=== PATIENT | female | born 1990 | race Caucasian/White ===

== ENCOUNTER 2020-03-02 14:32 | Outpatient (CLI) | payer BC, SELFPAY ==
[2020-03-05 12:20] LABS: SARS-CoV-2 RNA PCR Positive
== END 2020-03-02 14:33 | disposition home or self-care (01) ==
LOC: CHSLAB 14:35
PROVIDERS: PCP Internal Medicine; Visit Provider Internal Medicine
DX: U07.1 COVID-19 (principal)
CPT/HCPCS: 87635; C9803; U0003

== ENCOUNTER 2021-11-06 11:29 | Outpatient (CLI) | payer BC, SELFPAY ==
[2021-11-07] MEDS: RHO(D) IMMUNE GLOBULIN 300 MCG/2 ML SYRINGE IM (11:41)
== END 2021-11-06 11:30 | disposition home or self-care (01) ==
LOC: ANHLAB 11:31
PROVIDERS: PCP Internal Medicine; Visit Provider Obstetrics & Gynecology
DX: O36.0190 Maternal care for anti-D [Rh] antibodies, unspecified trimester, not applicable or unspecified (principal); Z3A.00 Weeks of gestation of pregnancy not specified
CPT/HCPCS: 36415; 85461; 90384; 96372; J2790

== ENCOUNTER 2021-12-13 11:44 | Outpatient (CLI) | payer BC, SELFPAY ==
[2021-12-13] VITALS (8 sets, daily range): BP systolic 129–143; BP diastolic 75–91; PULSE 84–98; RESP 18; TEMP 36.3; BMI 41.2
[2021-12-13 12:44] LABS: Creatinine Urine 209.9 mg/dL
[2021-12-13 12:46] LABS: Alanine Aminotransferase 12 U/L (6-35); Albumin Level 3.5 g/dL (3.5-5.1); Alkaline Phosphatase 81 U/L (38-126); Anion Gap 7 mmol/L (8-16); Aspartate Amino Transferase 17 U/L (14-36); Bilirubin,Total < 0.1 mg/dL (0.2-1.3); Blood Urea Nitrogen 6 mg/dL (7-17); Calcium 8.9 mg/dL (8.4-10.2); Carbon Dioxide 21 mmol/L (22-30); Chloride 107 mmol/L (98-107); Estimated CRCL calculation 203 ml/min; Estimated Glomerular Filt Rate > 60; Glucose 104 mg/dL (65-110); Potassium 3.8 mmol/L (3.4-5.0); Sodium 135 mmol/L (137-145); Uric Acid 5.2 mg/dL (2.5-7.5)
[2021-12-13 12:50] LABS: Basophils Percent Auto 0.3 % (0.2-1.2); Eosinophils Absolute Auto 0.1 K/mm3 (0-0.3); Eosinophils Percent Auto 0.8 % (0-4.4); Hematocrit 37.9 % (37.0-47.0); Hemoglobin 13.1 g/dL (12.0-15.0); Immature Granulocyte Absolute 0.08 K/mm3 (0.00-0.031); Immature Granulocyte Percent A 0.8 % (0-0.5); Lymphocytes Absolute Auto 2.54 K/mm3 (0.9-3.2); Lymphocytes Percent Auto 25.2 % (18.3-44.2); Mean Corpuscular HGB Conc 34.6 g/dl (32-36); Mean Corpuscular Hemoglobin 30.2 pg (26-34); Mean Corpuscular Volume 87.3 fl (80-100); Mean Platelet Volume 9.2 fl (7.4-10.4); Monocytes Absolute Auto 0.6 K/mm3 (0.1-0.6); Monocytes Percent Auto 6.3 % (2.6-8.5); Neutrophils Absolute Auto 6.7 K/mm3 (1.3-6.7); Neutrophils Percent Auto 66.6 % (45.5-73.1); Platelet Count Result 294 k/mm3 (150-375); Red Blood Count 4.34 M/mm3 (4.2-5.4); White Blood Count 10.1 K/mm3 (4.5-10.0)
[2021-12-13 13:11] LABS: Add Urine Microscopic? YES; Appearance Urine Slightly Cloudy (Clear); Bilirubin Urine Negative (Negative); Blood Urine Trace-Intact (Negative); Color Urine Yellow (Yellow); Glucose Urine UA Negative (Negative); Ketones Urine Negative (Negative); Leukocyte Esterase Ur 1+ LEU/UL (Negative); Nitrate Urine Negative (Negative); Protein Urine Trace mg/dL (Negative); Specific Grav Ur 1.025 (1.001-1.035); Urobilinogen Urine 0.2 mg/dL (<2.0)
[2021-12-13 13:17] LABS: Bacteria Urine 2+ /hpf; Mucus Urine Few /lpf; Squamous Epithelial Cell Urine Moderate /hpf (Few)
[2021-12-13 13:28] LABS: Total Protein Urine Random < 5 mg/dL; Ur Ttl Prot Creatinine Ratio < 0.02 mg/mg (0-0.20)
--- NOTE | 2021-12-13 13:47 | PC.NURSE ---
Dr. Lesley Shin informed of BP's, lab results, and reactive NST. Order for discharge received.
--- NOTE | 2021-12-27 11:36 | PM.IMHP ---
H&P: HPI History of Present Illness Date/Time: 12/27/21 11:36 Chief Complaint: Elevated blood pressure at term with previous section Narrative: This is a 31-year-old 2 para 1 with a previous who presents at 38 weeks gestation for repeat section. Her blood pressures have been gradually worsening. She has an early ultrasound confirming dates. [facility] Past Medical History Medical History (Updated 05/24/19 @ 10:53 by Sho Patton CRNA) Obesity (BMI 35.0-39.9 without comorbidity) Family History Family History Grandparent Diabetes mellitus Mother Diverticulitis Father Hypertension Sibling Asthma Social History Social History Smoking status: Never smoker Substance use: never Spiritual care concerns: No Meds Home Medications and Allergies Home Medications Medication Instructions Recorded Confirmed Type ergocalciferol (vitamin D2) 1,250 50,000 unit PO WEEKLY 05/11/19 12/13/21 History mcg (50,000 unit) capsule (Vitamin D2) vit no.95-ferrous 1 tablet PO DAILY 12/13/21 12/13/21 History fumarate 28 mg-folic acid 800 mcg tablet () Allergies Allergy/AdvReac Type Severity Reaction Status Date / Time No Known Allergies Allergy Verified 05/11/19 13:27 Assessment and Plan Assessment and plan (1) Obesity (BMI 35.0-39.9 without comorbidity): Code(s): E66.9 - Obesity, unspecified Status: Acute (2) Gestational hypertension: Code(s): O13.9 - Gestational [-induced] hypertension without significant proteinuria, unspecified trimester Status: Acute (3) Previous section: Code(s): Z98.891 - History of uterine scar from previous surgery Status: Acute Plan Repeat low-transverse section
== END 2021-12-13 13:52 | disposition home or self-care (01) ==
LOC: ANHOBOP 11:51 → ANHOBPP 11:52
PROVIDERS: PCP Internal Medicine; Visit Provider Obstetrics & Gynecology
DX: O13.9 Gestational [pregnancy-induced] hypertension without significant proteinuria, unspecified trimester (principal); Z3A.00 Weeks of gestation of pregnancy not specified
CPT/HCPCS: 36415; 59025; 80053; 81001; 82570; 84156; 84550; 85025; 87086; 87088; 99199

== ENCOUNTER 2021-12-28 10:23 | Outpatient (CLI) | payer BC, SELFPAY ==
[2021-12-28 10:39] LABS: Mean Corpuscular HGB Conc 32.5 g/dl (32-36); Mean Corpuscular Hemoglobin 29.5 pg (26-34); Mean Corpuscular Volume 90.9 fl (80-100); Mean Platelet Volume 9.1 fl (7.4-10.4); Platelet Count Result 273 k/mm3 (150-375); Red Cell Distribution Width 14.6 % (11.5-14.5); White Blood Count 9.6 K/mm3 (4.5-10.0)
[2021-12-30 05:56] LABS: Rapid Plasma Reagin Non-Reactive (NonReactive)
== END 2021-12-28 10:24 | disposition home or self-care (01) ==
PROVIDERS: PCP Internal Medicine; Visit Provider Obstetrics & Gynecology
DX: Z34.93 Encounter for supervision of normal pregnancy, unspecified, third trimester (principal); Z3A.00 Weeks of gestation of pregnancy not specified
CPT/HCPCS: 36415; 85027; 86592; 86850; 86880; 86900; 86901; 86902

== ENCOUNTER 2021-12-30 05:27 | Inpatient (IN) | payer BC, SELFPAY ==
--- NOTE | 2021-12-27 11:38 | HP_ITS ---
This report was moved to the correct visit on 01/02/2022. Original report was signed by Ralph Pope MD on 12/27/2021 1138. H&P: HPI History of Present Illness Date/Time: 12/27/21 11:36 Chief Complaint: Elevated blood pressure at term with previous section Narrative: This is a 31-year-old 2 para 1 with a previous who presents at 38 weeks gestation for repeat section. Her blood pressures have been gradually worsening. She has an early ultrasound confirming dates. [facility] Past Medical History Medical History (Updated 05/24/19 @ 10:53 by Sho Patton CRNA) Obesity (BMI 35.0-39.9 without comorbidity) Family History Family History Grandparent Diabetes mellitus Mother Diverticulitis Father Hypertension Sibling Asthma Social History Social History Smoking status: Never smoker Substance use: never Spiritual care concerns: No Meds Home Medications and Allergies Home Medications Medication Instructions Recorded Confirmed Type ergocalciferol (vitamin D2) 1,250 50,000 unit PO WEEKLY 05/11/19 12/13/21 History mcg (50,000 unit) capsule (Vitamin D2) vit no.95-ferrous 1 tablet PO DAILY 12/13/21 12/13/21 History fumarate 28 mg-folic acid 800 mcg tablet () Allergies Allergy/AdvReac Type Severity Reaction Status Date / Time No Known Allergies Allergy Verified 05/11/19 13:27 Assessment and Plan Assessment and plan (1) Obesity (BMI 35.0-39.9 without comorbidity): Code(s): E66.9 - Obesity, unspecified Status: Acute (2) Gestational hypertension: Code(s): O13.9 - Gestational [-induced] hypertension without significant proteinuria, unspecified trimester Status: Acute (3) Previous section: Code(s): Z98.891 - History of uterine scar from previous surgery Status: Acute Plan Repeat low-transverse section This dictation may have been done utilizing a voice recognition system. Attempts have been made to correct errors. However, there may be uncorrected grammatical, spelling, and recognition errors present. Report Initialized date/time: Ralph Pope MD 12/27/21 / 8 Electronically signed by: Ralph Pope MD 12/27/21 1138 [facility]
--- NOTE | 2021-12-27 12:17 | PC.NURSE ---
Verified with OR schedule and patient--C/S 12/30/21 at 0900 Patient given requisition for pre-op lab draw on 12/28/21
[2021-12-30] VITALS (67 sets, daily range): BP systolic 78–179; BP diastolic 47–144; PULSE 67–134; RESP 12–18; TEMP 36.2–37.3; O2SAT 98–100; BMI 41.6
[2021-12-30] MEDS: LACTATED RINGERS 1,000 ML 125 ML IV CONT (05:48)
--- NOTE | 2021-12-30 05:51 | LDADM ---
This patient, Gabriella Martin, was admitted to Labor/Delivery/Recovery 120 on 12/30/21 at 05:27. Plans for labor, pain management and were discussed with patient. Patient/family oriented to hospital policies and general routines including ID bracelet, bed and alarms, visiting hours, pain management, procedures, bathroom and other care routines, personal items, smoking policy, room service/diet and guest tray routines, infant security routines, and visiting hours. Patient/Family are encouraged to report perceived risks to care and to ask questions if they do not understand what they are told or what they should do. See OBIX for further documentation.
--- NOTE | 2021-12-30 06:33 | P.PNAN_ITS ---
Anes - Initial Pre Proc Eval Procedure: Operation Date: 12/30/21 09:00 Proposed Procedures p Repeat Section - Ralph Shin MD Date/Time: 12/30/21 06:33 Surgeon: Ralph Shin MD Pre Op Diagnosis: Repeat Patient Data Age: 31 Gender: F Height: 1.63 m Weight: 110 kg Last Vital Signs Temp 36.2 C L 12/30/21 06:25 Pulse 91 12/30/21 06:11 BP 116/86 12/30/21 06:11 O2 Del Method Room Air 12/30/21 05:51 Allergies Allergy/AdvReac Type Severity Reaction Status Date / Time No Known Allergies Allergy Verified 12/27/21 12:04 Home Medications Medication Instructions Recorded Confirmed Type ergocalciferol (vitamin D2) 1,250 50,000 unit PO WEEKLY 05/11/19 12/13/21 History mcg (50,000 unit) capsule (Vitamin D2) vit no.95-ferrous 1 tablet PO DAILY 12/13/21 12/13/21 History fumarate 28 mg-folic acid 800 mcg tablet () Patient hx anesthesia problems: none Family hx anesthesia problems: none Results Review: All pre-operative results and documents have been reviewed as part of the pre- operative evaluation. [facility] Past Medical History Medical History (Updated 05/24/19 @ 10:53 by Sho Patton CRNA) Obesity (BMI 35.0-39.9 without comorbidity) Family History Family History Grandparent Diabetes mellitus Mother Diverticulitis Father Hypertension Sibling Asthma Social History Social History Smoking status: Never smoker Second hand tobacco smoke exposure: No Substance use: never Spiritual care concerns: No Anes - Eval Final PreProcedure Day of Procedure 12/30/21 06:33 Patient weight: morbidly obese Heart: regular rate and rhythm Lungs: clear to auscultation and normal air movement Airway: Mallampati scale class II Neurological: alert and oriented Last oral intake: >/= 8 hours ASA classification: III Emergent: no Anesthetic plan: proceed Anesthesia type and monitoring: regional spinal and standard monitoring Results Review: All pre-operative results and documents have been reviewed as part of the pre-operative evaluation. Informed Consent: The patient's anesthetic plan and its attendant risks and benefits were discussed with the patient/family/POA. Questions were solicited and answers provided to the satisfaction of the patient/family/POA.
--- NOTE | 2021-12-30 06:35 | WPDHPUPDATE1 ---
History and Physical Update Update Date/Time: 12/30/21 06:35 History and Physical has been reviewed, including an updated exam of the patient. There are NO changes in the patient's condition. Risks, benefits, and alternatives have been discussed and questions answered. Patient agrees to proceed with procedure.
[2021-12-30] MEDS: LACTATED RINGERS 250 ML 999 ML IVPB (06:59)
[2021-12-30] MEDS: ceFAZolin 2 GM/D5W 50 ML 2 GM/50 ML BAG IVPB (07:28)
--- NOTE | 2021-12-30 08:46 | W.PM.PROC2 ---
Procedure Note - Detailed Date of Procedure 12/30/21 Pre-op Diagnosis Repeat Post-op Diagnosis Same Procedure Performed Repeat low-transverse section Surgeon Ralph Shin MD Anesthesia Spinal Indications This is a 31-year-old 2 para 1 at 38 weeks gestation mild gestational hypertension and previous section Findings Female infant 7lb 1oz Apgars of 8 and 9 at 1 and 5minutes respectively. Multiple adhesions were seen which necessitated slow entry. Description of Procedure Patient was prepped draped in the normal sterile fashion placed in the supine position. Under excellent spinal anesthetic the abdomen was entered Pfannenstiel fashion progressive layers of fascia. Fascia incised midline number outward fashion bilaterally. Underlying muscles were sharply dissected multiple adhesions were noted from omentum anteriorly and these required gentle dissection and using sharp and monopolar cautery. The uterus was then opened after a bladder flap in made. The head delivered in the PRINCESS position. Anterior posterior shoulder delivered spontaneously cord clamped was cut and passed off the table given Apgars of 7 [id number] 8 [id number] cord blood was drawn placenta delivered intact manually delivered wrapped in a moist towel. The uterus was cleaned of debris. The uterus was closed continuous running locking 0 Vicryl from lateral edge to lateral edge followed by 2nd imbricating running locking 0 Vicryl from lateral edge to lateral edge. Hemostasis was assured. The uterus returned to the abdomen after inspecting the ovaries and tubes. The laps removed and accounted for. The fascia closed with continuous running 0 Vicryl from lateral edge to midline bilaterally. Irrigation subcutaneous layer and skin closed with 4 Monocryl and glue. QBL was 825. All sponge, needle, instrument counts were correct. Mom and baby were doing fine at the time of dictation Estimated Blood Loss 825 Drains No Packing No Pathology None sent Complications No immediate complications Condition Stable Disposition Floor
[2021-12-30] MEDS: KETOROLAC 30 MG/ML VIAL (*BKC) 15 MG IV PUSH (09:14)
[2021-12-30] MEDS: KETOROLAC 30 MG/ML VIAL (*BKC) IV PUSH ×2 (11:45→18:24)
--- NOTE | 2021-12-30 13:43 | OBPPTRN ---
1130-Patient transferred to post room #290 via stretcher. Support person present. Oriented to unit, room, information board, rooming in, admission packet and security measures. Patient verbalizes understanding.
[2021-12-30] MEDS: SIMETHICONE 80 MG TAB.CHEW PO ×2 (14:18→18:25)
[2021-12-30] MEDS: DEXTROSE 5%/0.45% SOD CHL 1,000 ML 125 ML IV CONT (15:37)
[2021-12-30] MEDS: HYDROcodone/acetaminophen (*CRX) 10-325 MG TABLET 1 TAB PO ×3 (16:31→23:13)
[2021-12-30] MEDS: DOCUSATE SODIUM 100 MG CAPSULE PO (16:31)
[2021-12-31] MEDS: IBUPROFEN 600 MG TABLET PO ×3 (04:30→20:00)
[2021-12-31] MEDS: HYDROcodone/acetaminophen (*CRX) 5-325 MG TABLET 1 TAB PO ×7 (04:30→23:04)
[2021-12-31] MEDS: SIMETHICONE 80 MG TAB.CHEW PO ×6 (04:31→20:00)
[2021-12-31 04:40] VITALS: BP 122/78; PULSE 109; RESP 18; TEMP 36.6
--- NOTE | 2021-12-31 05:32 | PM.OBPNVD ---
OB - PN: Subj Subjective Date/time seen: 12/31/21 05:32 Patient comments: no complaints and pain well controlled baby status: doing well and nursing well OB - PN A/P Assessment and Plan (1) Previous section: Code(s): Z98.891 - History of uterine scar from previous surgery Status: Acute (2) Obesity (BMI 35.0-39.9 without comorbidity): Code(s): E66.9 - Obesity, unspecified Status: Acute (3) Gestational hypertension: Code(s): O13.9 - Gestational [-induced] hypertension without significant proteinuria, unspecified trimester Status: Acute Plan day: 1 Plan: routine care Time Spent With Patient Time: Total time spent is greater than 50% in coordination of care (as documented) at patient's floor/unit and/or counseling patient: Time with patient: less than 15 minutes Exam GI: Inspection: normal to inspection and obesity Auscultation: normal bowel sounds and other (wound cdi fundus below umbilicus)
[2021-12-31 06:26] LABS: Basophils Percent Auto 0.2 % (0.2-1.2); Eosinophils Absolute Auto 0.2 K/mm3 (0-0.3); Eosinophils Percent Auto 1.6 % (0-4.4); Hematocrit 24.9 % (37.0-47.0); Immature Granulocyte Percent A 0.9 % (0-0.5); Lymphocytes Absolute Auto 2.74 K/mm3 (0.9-3.2); Lymphocytes Percent Auto 24.2 % (18.3-44.2); Mean Corpuscular HGB Conc 32.1 g/dl (32-36); Mean Corpuscular Hemoglobin 29.6 pg (26-34); Mean Corpuscular Volume 92.2 fl (80-100); Mean Platelet Volume 9.2 fl (7.4-10.4); Monocytes Absolute Auto 0.9 K/mm3 (0.1-0.6); Monocytes Percent Auto 7.6 % (2.6-8.5); Neutrophils Absolute Auto 7.4 K/mm3 (1.3-6.7); Neutrophils Percent Auto 65.5 % (45.5-73.1); Platelet Count Result 252 k/mm3 (150-375); Red Cell Distribution Width 14.6 % (11.5-14.5); White Blood Count 11.3 K/mm3 (4.5-10.0)
--- NOTE | 2021-12-31 07:29 | WPDANLDPN2 ---
Anes-Prog Note L&D Date/Time: 12/31/21 07:29 Comfortable throughout: section Neuraxial method: spinal Epidural/Spinal procedure site: clean & non-tender Neuro status: Neuro function grossly intact. Cardiovascular status: normal Respiratory status: normal Airway patency: baseline Mental status: baseline Post-Op hydration status: normal Vital Signs: Last Vital Signs Temp 36.6 C 12/31/21 04:40 Pulse 109 H 12/31/21 04:40 Resp 18 12/31/21 04:40 BP 122/78 12/31/21 04:40 Pulse Ox 99 12/30/21 16:00 O2 Del Method Room Air 12/31/21 04:40 Pain score (VAS): 2/10 I/O: Intake & Output 12/30/21 12/30/21 12/31/21 15:59 23:59 07:59 Intake Total 1430 2200 1250 Output Total 1125 750 850 Balance 305 1450 400 Post-procedural complaints: other (bilateral posterior neck and shoulder pain) Patient feedback: Patient satisfied with anesthetic care.
--- NOTE | 2021-12-31 07:29 | WPDANLDNPN2 ---
Anes-Prog Note L&D-Neuraxial Date/Time: 12/31/21 07:29 Neuraxial medications: intrathecal PF morphine Opiod-related complaints: none Patient feedback: Patient satisfied with post-operative pain management.
[2021-12-31] MEDS: POLYSACCHARIDE IRON COMPLEX 150 MG CAPSULE PO ×2 (07:48→16:59)
[2021-12-31] MEDS: MULTIVIT/MIN/PREN/FOL AC/IRON TABLET 1 TAB PO (07:49)
[2021-12-31] MEDS: DOCUSATE SODIUM 100 MG CAPSULE PO ×2 (07:49→16:59)
[2021-12-31 08:05] VITALS: BP 113/68; PULSE 109; RESP 18; TEMP 36.3; O2SAT 98
--- NOTE | 2021-12-31 08:48 | PC.NURSE ---
[id number] Introductions were made, then consulted with patient to assess needs related to . Mother led the conversation with her experience feeding her so far. Mother voiced understanding of the benefits of skin to skin (unwrapping and placing vertically on her chest), responsive feeding and how to watch for early feeding signs, frequency of feeding on demand about every 8-12 times in 24 hours (every 2-3 hours), milk production, duration of feeding, signs of adequate intake/output and how to record on the feeding sheet. Mother has demonstrated responsive feedings, stimulating with skin to skin, hand expressed colostrum, touch, talking to to encourage if it has been 2 -3 hours since the start of the last , to call if does not latch or there is discomfort with . Reported to the primary RN.
--- NOTE | 2021-12-31 10:14 | PC.NURSE ---
0921 - Introductions were made, then consulted with patient to assess needs related to . Mother led the conversation with her experience feeding her so far. is in the cradle position sleeping. Mother states infant will not wake up to eat. Mother works well with her with encouragement and education. Encouraged understanding of the benefits of skin to skin (unwrapping and placing vertically on her chest), responsive feeding and how to watch for early feeding signs, frequency of feeding on demand about every 8-12 times in 24 hours (every 2-3 hours), milk production, duration of feeding, signs of adequate intake/output and how to record on the feeding sheet. is left skin to skin with mother voicing understanding to call for assistance with latching. [id number] RN consulted to see if was showing feeding signs. Mother is working with and has latched non-optimally in a non-conventional cradle position with infants arms crossing in front of her body which is dangling. RN suggested detaching and attempting a more comfortable position both for mother and . Reviewed positioning and ear, shoulder, hip alignment, supporting the breast, asymmetrical latch (off-center), and leading with the chin with a big open side gape. Infant latched optimally to the right breast in football position. Education given to mother of how to visualize suck/swallow ratios and drinking at the breast. Infant was able to maintain latch without discomfort to mother. Nipple care reviewed with optimal latch and good positioning. Reviewed good handwashing when or touching the breast/nipples to prevent infection. Resources used to facilitate learning were used with the visual handouts. Mother voiced understanding of responsive feedings, stimulating with skin to skin, talking to to encourage if it has been 2 -3 hours since the start of the last , to call if does not latch or there is discomfort with . Reported to the primary RN.
[2021-12-31 11:54] VITALS: BP 122/75; PULSE 116; RESP 16; TEMP 36.3; O2SAT 98
--- NOTE | 2021-12-31 12:00 | PC.NURSE ---
abdominal binder placed on pt.
[2021-12-31] MEDS: RHO(D) IMMUNE GLOBULIN 300 MCG/2 ML SYRINGE IM (13:52)
[2021-12-31 17:10] VITALS: BP 133/84; PULSE 119; RESP 18; O2SAT 97
[2021-12-31 18:50] VITALS: BP 149/89; PULSE 110; RESP 18; TEMP 36.6
[2021-12-31 23:00] VITALS: BP 135/88; PULSE 117; RESP 18
[2022-01-01] MEDS: HYDROcodone/acetaminophen (*CRX) 10-325 MG TABLET 1 TAB PO (00:04)
[2022-01-01] MEDS: SIMETHICONE 80 MG TAB.CHEW PO ×3 (00:04→06:57)
[2022-01-01] MEDS: IBUPROFEN 600 MG TABLET PO (04:12)
[2022-01-01] MEDS: HYDROcodone/acetaminophen (*CRX) 5-325 MG TABLET 1 TAB PO ×2 (04:12→06:58)
[2022-01-01 04:20] VITALS: BP 129/80; PULSE 114
[2022-01-01] MEDS: POLYSACCHARIDE IRON COMPLEX 150 MG CAPSULE PO (06:58)
[2022-01-01] MEDS: MULTIVIT/MIN/PREN/FOL AC/IRON TABLET 1 TAB PO (06:58)
[2022-01-01] MEDS: DOCUSATE SODIUM 100 MG CAPSULE PO (06:58)
--- NOTE | 2022-01-01 07:04 | PM.DS ---
DS: Admitting Diagnosis Discharge Date 01/01/2022 Admitting Diagnosis term / previous section/gestational hypertension DS: Discharge Diagnosis Discharge Diagnosis (1) Previous section: Code(s): Z98.891 - History of uterine scar from previous surgery Status: Acute (2) Obesity (BMI 35.0-39.9 without comorbidity): Code(s): E66.9 - Obesity, unspecified Status: Acute (3) Gestational hypertension: Code(s): O13.9 - Gestational [-induced] hypertension without significant proteinuria, unspecified trimester Status: Acute DS: Summary Hospital Course Reason for hospitalization: repeat section at 38 weeks with elevated blood pressures Hospital Course: this is a 32-year-old multiparous admitted for repeat section at 38 weeks secondary to previous section and elevated blood pressures. Her hospital course was unremarkable. She underwent repeat section. She was up, breast-feeding, ambulating, voiding without difficulty, and generally without complaints. Time Spent with Patient Time attestation: Total time spent providing and/or coordinating discharge services: DS: Data Data Completed and Pending Labs on day of discharge: Labs from last 24 hours 12/31/21 06:09 Blood Type O Negative Antibody Screen Negative Screen Positive H Baby's Blood Type O pos Baby's CRISTAL Negative KB Hemoglobin Negative Doses of RhIg Required 1 Discharge Plan Discharge Attending physician on discharge: Ralph Pope Discharging Clinician: Ralph Pope Patient Disposition: Home, Self-Care Activity: may shower, no straining, may drive after 2 weeks and pelvic rest Diet: heart healthy Wound Care Instructions: follow printed instructions Patient Instructions: Antibiotic Form Stand Alone Forms: General Discharge Information Follow-up/Referrals: Ralph Pope MD [Physician] - Discharge Medications: New hydrocodone-acetaminophen 5-325 mg tablet 1 tablet PO Q4H PRN (Reason: pain) Qty: 30 0RF Continued ergocalciferol (vitamin D2) [Vitamin D2] 50,000 unit Capsule 50,000 unit PO WEEKLY Rx Instructions: Takes every Thursday PNV cmb#95-ferrous fumarate-FA [] 28 mg iron- 800 mcg Tablet 1 tablet PO DAILY Date of admission: 12/30/21 05:27 Primary Care Provider: Uriel Trivedi Admitting Provider: Ralph Pope Attending physician on admission: Ralph Pope Condition: Stable
--- NOTE | 2022-01-01 07:07 | P.PNOB_ITS ---
OB - PN: Subj Subjective Date/time seen: 01/01/22 07:07 Patient comments: no complaints and pain well controlled baby status: doing well and nursing well OB - PN: Obj Data Labs CBC & Chem 7: 12/31/21 06:09 Labs: Laboratory Results - last 24 hr 12/31/21 06:09 Blood Type O Negative Antibody Screen Negative Screen Positive H Baby's Blood Type O pos Baby's CRISTAL Negative KB Hemoglobin Negative Doses of RhIg Required 1 OB - PN A/P Assessment and Plan (1) Previous section: Code(s): Z98.891 - History of uterine scar from previous surgery Status: Acute (2) Obesity (BMI 35.0-39.9 without comorbidity): Code(s): E66.9 - Obesity, unspecified Status: Acute (3) Gestational hypertension: Code(s): O13.9 - Gestational [-induced] hypertension without significant p roteinuria, unspecified trimester Status: Acute Plan day: 2 Plan: routine care and follow up 6 weeks (4) Time Spent With Patient Time: Total time spent is greater than 50% in coordination of care (as documented) at patient's floor/unit and/or counseling patient: Time with patient: less than 15 minutes
[2022-01-01 08:05] VITALS: BP 128/79; PULSE 124; RESP 16; TEMP 36.2; O2SAT 98
--- NOTE | 2022-01-01 08:43 | PC.NURSE ---
Patient to view the discharge video Mother & Baby Care, The First Two Weeks online. Patient was given the opportunity and encouraged to ask questions. Patient verbalized understanding of information shared and has been given the mother/baby guide for home reference.
--- NOTE | 2022-01-01 16:59 | PC.NURSE ---
[id number] Mother led the conversation with her experience and plan to feed her infant so far and her ability to independently latch optimally without discomfort. Mother is feeding appropriately for growth of and understands stimulating to eat if needed. Infant has had appropriate feedings in the last 24 hours meets the outcomes for weight, output and jaundice at this time. Mother states she is confident to continue effectively breastfeed her infant at home or when to call for assistance and denies any additional assistance or education at this time. Primary RN is present giving patient discharge instructions for home.
[2022-01-02 10:49] VITALS: BP 130/80; PULSE 102; RESP 20; TEMP 36.9; O2SAT 98
--- NOTE | 2022-01-22 07:21 | WPDHPUPDATE1 ---
History and Physical Update Update Date/Time: 01/22/22 07:21 History and Physical has been reviewed, including an updated exam of the patient. There are NO changes in the patient's condition. Risks, benefits, and alternatives have been discussed and questions answered. Patient agrees to proceed with procedure. Physical exam was unremarkable.
--- NOTE | 2022-01-23 07:30 | PM.IMHP ---
H&P: HPI History of Present Illness Date/Time: 01/23/22 07:30 Chief Complaint: see h and p PMFSH Past Medical History Medical History (Updated 01/20/22 @ 00:01 by Allen Velasquez) Obesity (BMI 35.0-39.9 without comorbidity) Family History Family History Grandparent Diabetes mellitus Mother Diverticulitis Father Hypertension Sibling Asthma Social History Social History Smoking status: Never smoker Second hand tobacco smoke exposure: No Substance use: never Spiritual care concerns: No Meds Home Medications and Allergies Home Medications Medication Instructions Recorded Confirmed Type ergocalciferol (vitamin D2) 1,250 50,000 unit PO WEEKLY 05/11/19 12/13/21 History mcg (50,000 unit) capsule (Vitamin D2) vit no.95-ferrous 1 tablet PO DAILY 12/13/21 12/13/21 History fumarate 28 mg-folic acid 800 mcg tablet () hydrocodone 5 mg-acetaminophen 325 1 tablet PO Q4H PRN pain #30 tabs 12/30/21 Rx mg tablet Allergies Allergy/AdvReac Type Severity Reaction Status Date / Time No Known Allergies Allergy Verified 12/27/21 12:04
== END 2022-01-01 10:46 | disposition home or self-care (01) | DRG 788 ==
LOC: ANHLDR 06:37 → ANHOB2 12:39
PROVIDERS: Admitting Provider Obstetrics & Gynecology; PCP Internal Medicine; Visit Provider Obstetrics & Gynecology
PROC: 10D00Z1 Extraction of Products of Conception, Low, Open Approach (ICD-10-PCS; CPT 59514; principal; 2021-12-30 09:00)
DX: O34.219 Maternal care for unspecified type scar from previous cesarean delivery (principal); O99.214 Obesity complicating childbirth; O13.4 Gestational [pregnancy-induced] hypertension without significant proteinuria, complicating childbirth; O99.62 Diseases of the digestive system complicating childbirth; E66.01 Morbid (severe) obesity due to excess calories; Z3A.38 38 weeks gestation of pregnancy; Z37.0 Single live birth
CPT/HCPCS: 36415; 85025; 85460; 85461; 90384; A9270; J0131; J0690; J1885; J2274; J2370; J2405; J2590; J2790; J7120

== ENCOUNTER 2022-01-19 14:42 | Emergency (ER) | payer BC, SELFPAY ==
--- NOTE | ~2022-01-19 | US_ITS ---
EXAMINATION: US venous doppler UE RT DATE: 01/19/2022 17:00 INDICATION: Arm redness, warmth, swelling, and pain. TECHNIQUE: Grayscale ultrasound images without and with compression and Doppler ultrasound images of the right upper extremity veins were obtained. COMPARISON: None. FINDINGS: The visualized portions of the right internal jugular vein, subclavian vein, axillary vein, brachial veins, basilic vein, cephalic vein, radial vein, and ulnar vein are patent. IMPRESSION: 1. No deep venous thrombosis. Reviewed, dictated and finalized at location K.
[2022-01-19 15:30] VITALS: BP 143/96; PULSE 90; RESP 20; TEMP 36.6; O2SAT 99
--- NOTE | 2022-01-19 17:04 | ED.SKABFB ---
HPI - Skin/Abscess/Foreign Bdy General Chief complaint: Skin/Abscess/Foreign Body Stated complaint: rash , concern for blood clot Time Seen by Provider: 01/19/22 15:40 History of Present Illness HPI narrative: Patient is a 32-year-old female who presents ER with welts on her skin. Symptoms began 4 days ago. She initially started with some dots on her left flank. She then developed some welts across the sides of her chest bilaterally. She began taking cephalexin after having the skin changes. The skin changes continue to recur and she has a swollen warm area to the right forearm near the elbow. The other areas of cleared up. No fevers or chills or sweats. No chest pain or chest pressure. Patient was hospitalized 3 weeks ago for a delivery of her baby. No new perfumes or laundry detergent. She is on no medications other than the antibiotic. Related Data Home Medications Medication Instructions Recorded Confirmed ergocalciferol (vitamin D2) 1,250 50,000 unit PO WEEKLY 05/11/19 12/13/21 mcg (50,000 unit) capsule (Vitamin D2) vit no.95-ferrous 1 tablet PO DAILY 12/13/21 12/13/21 fumarate 28 mg-folic acid 800 mcg tablet () Allergies Allergy/AdvReac Type Severity Reaction Status Date / Time No Known Allergies Allergy Verified 12/27/21 12:04 Review of Systems Review of Systems: All systems reviewed & are unremarkable except as noted in HPI and below Constitutional: Constitutional: Denies chills and Denies fever(s) ENT: Denies nasal congestion and Denies sore throat Integumentary/Breasts: Skin/Breast: Reports pruritus, Reports erythema, Reports rash and Denies skin ulcer Neurologic: Denies focal weakness and Denies numbness PMFSH Past Medical History Medical History (Updated 01/19/22 @ 17:35 by Tanner Higuera MD) Obesity (BMI 35.0-39.9 without comorbidity) Family History Family History Grandparent Diabetes mellitus Mother Diverticulitis Father Hypertension Sibling Asthma Social History Social History Smoking status: Never smoker Second hand tobacco smoke exposure: No Substance use: never Spiritual care concerns: No Exam Narrative: GENERAL: Well-appearing, well-nourished, and in no acute distress. HEAD: Normocephalic, atraumatic. CHEST: Clear to auscultation. No respiratory distress. HEART: Regular rate and rhythm. Normal peripheral pulses. EXTREMITIES: Normal range of motion. No edema. SKIN: Warm, dry, no rash. With induration and redness to the proximal right forearm extending medial to antecubital fossa. Nontender. NEURO: Alert and oriented x3. PSYCH: Normal mood and affect. Course Course Emergency Course: Labs and imaging unremarkable. Patient contacted her [facility] and discovered that there is a perfumed fabric softener being used that she does not usually use. This is likely the cause since the first thing in a load of wash was were brought in this for she first broke out. Zyrtec recommended for itching and inflammation and avoidance of irritant recommended for full resolution of issues for Vital Signs Vital signs: Vital Signs Temperature 97.9 F 01/19/22 15:30 Pulse Rate 90 01/19/22 15:30 Respiratory Rate 20 01/19/22 15:30 Blood Pressure 143/96 H 01/19/22 15:30 Pulse Oximetry 99 01/19/22 15:30 Oxygen Delivery Room Air 01/19/22 15:30 Temperature 97.9 F 01/19/22 15:30 Pulse Rate 90 01/19/22 15:30 Respiratory Rate 20 01/19/22 15:30 Blood Pressure 143/96 H 01/19/22 15:30 Pulse Oximetry 99 01/19/22 15:30 Oxygen Delivery Room Air 01/19/22 15:30 MDM - Skin/Abscess/Foreign Bdy Lab Data Result diagrams: 01/19/22 17:10 01/19/22 17:10 Labs: Lab Results 01/19/22 01/19/22 Range/Units 17:10 17:10 WBC 8.2 (4.5-10.0) K/mm3 RBC 3.97 L (4.2-5
[2022-01-19 17:15] LABS: Basophils Percent Auto 0.2 % (0.2-1.2); Eosinophils Absolute Auto 0.2 K/mm3 (0-0.3); Eosinophils Percent Auto 2.1 % (0-4.4); Hematocrit 37.1 % (37.0-47.0); Hemoglobin 11.5 g/dL (12.0-15.0); Immature Granulocyte Absolute 0.03 K/mm3 (0.00-0.031); Immature Granulocyte Percent A 0.4 % (0-0.5); Lymphocytes Absolute Auto 3.66 K/mm3 (0.9-3.2); Lymphocytes Percent Auto 44.8 % (18.3-44.2); Mean Corpuscular Volume 93.5 fl (80-100); Mean Platelet Volume 8.7 fl (7.4-10.4); Monocytes Absolute Auto 0.4 K/mm3 (0.1-0.6); Monocytes Percent Auto 4.8 % (2.6-8.5); Neutrophils Absolute Auto 3.9 K/mm3 (1.3-6.7); Neutrophils Percent Auto 47.7 % (45.5-73.1); Platelet Count Result 393 k/mm3 (150-375); Red Blood Count 3.97 M/mm3 (4.2-5.4); Red Cell Distribution Width 13.7 % (11.5-14.5); White Blood Count 8.2 K/mm3 (4.5-10.0)
[2022-01-19 17:24] LABS: Anion Gap 7 mmol/L (8-16); Blood Urea Nitrogen 12 mg/dL (7-17); Calcium 8.8 mg/dL (8.4-10.2); Carbon Dioxide 29 mmol/L (22-30); Chloride 104 mmol/L (98-107); Estimated CRCL calculation 119 ml/min; Estimated Glomerular Filt Rate > 60; Glucose 101 mg/dL (65-110); Potassium 4.4 mmol/L (3.4-5.0); Sodium 140 mmol/L (137-145)
== END 2022-01-19 18:00 | disposition home or self-care (01) ==
PROVIDERS: Emergency Provider Emergency Medicine; PCP Internal Medicine
DX: O99.73 Diseases of the skin and subcutaneous tissue complicating the puerperium (principal); L25.9 Unspecified contact dermatitis, unspecified cause; M79.89 Other specified soft tissue disorders; O99.215 Obesity complicating the puerperium; E66.9 Obesity, unspecified
CPT/HCPCS: 36415; 80048; 85025; 93971; 99284

== ENCOUNTER 2022-05-28 12:05 | Outpatient (CLI) | payer BC, SELFPAY ==
--- NOTE | ~2022-05-28 | CT_ITS ---
EXAMINATION: CT abdomen pelvis w con DATE: 05/28/2022 14:28 INDICATION: Upper abdominal pain and diarrhea. TECHNIQUE: Computed tomography (CT) of the abdomen and pelvis was performed with 100 cc Omnipaque 350 intravenous contrast. The dose-length product was 1294.24 mGy-cm. Automated exposure control and ite rative reconstruction technique were employed. COMPARISON: None. FINDINGS: Small pleural effusions. Small pericardial effusion. No significant vascular abnormality. T here is extensive small bowel wall thickening with mucosal enhancement. No definite obstruction. Ther e is ascites. Gallbladder is contracted and contains gallstones. Fatty infiltration of the liver. The liver is enlarged. The spleen, pancreas, adrenal glands and kidn eys are unremarkable. There is a ventral hernia containing fat and fluid. No significant vascular abn ormality. No lymphadenopathy. IMPRESSION: 1. Diffuse small bowel wall thickening with mucosal edema and enhancement. Differential diagnosis inc ludes infection, inflammatory bowel disease, shock bowel secondary to systemic hypotension, and less likely ischemic bowel. 2: Ascites. 3: Small pleural effusions. Small pericardial effusion. 4: Gallstones. 5: Hepatomegaly. Reviewed, dictated and finalized at location A. STONE CUTTER IMPRESSION: 1. Diffuse small bowel wall thickening with mucosal edema and enhancement. Diff erential diagnosis includes infection, inflammatory bowel disease, shock bowel secondary to systemic hypotension, and less likely ischemic bowel. 2: Ascites. 3: Small pleural effusions. Small pericardial effusion. 4: Gallstones. 5: Hepatomegaly.
[2022-05-28 12:30] LABS: Basophils Absolute Auto 0.02 K/mm3 (0.00-0.10); Basophils Percent Auto 0.2 % (0.0-1.0); Eosinophils Absolute Auto 0.06 K/mm3 (0.02-0.50); Eosinophils Percent Auto 0.5 % (1.0-6.0); Hematocrit 46.5 % (35.0-49.0); Immature Granulocyte Absolute 0.07 K/mm3 (0.00-0.00); Immature Granulocyte Percent A 0.5 % (0.0-0.0); Mean Corpuscular HGB Conc 32.3 g/dL (32.0-36.0); Mean Corpuscular Hemoglobin 28.4 pg (27.0-31.0); Mean Corpuscular Volume 87.9 fL (78.0-102.0); Mean Platelet Volume 8.8 fl (9.2-11.8); Monocytes Absolute Auto 0.54 K/mm3 (0.10-0.90); Monocytes Percent Auto 4.1 % (2.0-11.0); Neutrophils Absolute Auto 9.8 K/mm3 (1.7-7.2); Neutrophils Percent Auto 73.7 % (50.0-70.0); Platelet Count Result 426 K/mm3 (150-420); Red Blood Count 5.29 M/mm3 (4.20-5.40); White Blood Count 13.3 K/mm3 (4.8-10.8)
[2022-05-28 12:56] LABS: Alanine Aminotransferase 23 U/L (14-59); Albumin Level 3.5 g/dL (3.4-5.0); Alkaline Phosphatase 98 U/L (46-116); Anion Gap 11 mmol/L (8-16); Aspartate Amino Transferase 13 U/L (15-37); Blood Urea Nitrogen 11 mg/dL (7-18); CRP 4.4 mg/dL (0.0-0.9); Carbon Dioxide 26 mmol/L (21-32); Chloride 104 mmol/L (98-108); Estimated Glomerular Filt Rate > 60; Free T3 3.04 pg/mL (2.18-3.98); Free T4 Free Thyroxine 0.99 ng/dL (0.76-1.46); Glucose 90 mg/dL (70-99); Osmolality Calculated 291 mOsm/kg (285-295); Potassium 4.3 mmol/L (3.5-5.1); Sodium 141 mmol/L (136-145); Thyroid Stimulating Hormone 0.99 uIU/mL (0.36-3.74); Total Protein 7.3 g/dL (6.4-8.2)
[2022-05-28 13:10] LABS: Bilirubin,Total 0.2 mg/dL (0.00-1.00)
[2022-05-28 13:35] LABS: Erythrocyte Sedimentation Rate 19 mm/hr (0-15)
[2022-05-31 18:24] LABS: Complement Total CH50 >60 U/mL (31-60)
[2022-06-01 09:27] LABS: Gliadin AB, IgG 14.1 U/mL (<15.0); TTG IGA AB <1.0 U/mL (<15.0)
[2022-06-02 02:06] LABS: Immunoglobulin E 24 kU/L (<=114)
[2022-06-02 06:01] LABS: Complement C3 212 mg/dL (83-193); Immunoglobulin A 207 mg/dL (47-310); Immunoglobulin G 951 mg/dL (600-1640)
[2022-06-03 08:56] LABS: Reference Lab Test Name TRYPTASE
[2022-06-04 22:31] LABS: ANCA Screen Negative (Negative); Myeloperoxidase Ab <1.0 AI (<1.0); Proteinase-3 Ab <1.0 AI (<1.0); S cerevisiae Ab (IgA) 5.4 U (<=20.0)
== END 2022-05-28 12:06 | disposition home or self-care (01) ==
PROVIDERS: PCP Internal Medicine; Visit Provider Internal Medicine
DX: R10.9 Unspecified abdominal pain (principal); R19.7 Diarrhea, unspecified; K92.1 Melena
CPT/HCPCS: 36415; 74177; 80053; 82784; 82785; 83516; 83520; 84439; 84443; 84481; 85025; 85652; 86036; 86038; 86140; 86160; 86162; 86255; 86671; 87045; 87177; 87209; 87427; Q9967

== ENCOUNTER 2022-05-30 13:57 | Outpatient (CLI) | payer BC, SELFPAY ==
[2022-06-06 21:22] LABS: Calprotectin, Stool 48 mcg/g
== END 2022-05-30 13:58 | disposition home or self-care (01) ==
LOC: CHSLAB 13:59
PROVIDERS: PCP Internal Medicine; Visit Provider Internal Medicine
DX: K56.609 Unspecified intestinal obstruction, unspecified as to partial versus complete obstruction (principal)
CPT/HCPCS: 83993

== ENCOUNTER 2022-06-04 09:37 | Outpatient (CLI) | payer BC, SELFPAY ==
--- NOTE | ~2022-06-04 | XR_ITS ---
EXAMINATION: XR sm bowel follow through DATE: 06/04/2022 12:33 INDICATION: History of small bowel obstruction and abdominal pain TECHNIQUE: Molder Punch radiograph(s) of the abdomen was/were obtained. Gastrografin oral contrast was admin istered, and sequential radiographs of the abdomen were obtained until oral contrast was noted to be in the proximal colon. Spot fluoroscopic images of the small bowel were obtained. Fluoroscopy exposur e time was 1.2 minutes. The DAP for this procedure was 71.644 Gycm2. COMPARISON: None. FINDINGS: Molder Punch radiograph is unremarkable. Transit time from the stomach to proximal colon was appro ximately 90 minutes. Sensitivity is decreased by body habitus and water-soluble contrast. There is no rmal caliber and mucosal fold pattern throughout the small bowel. Terminal ileum is normal. No tethe ring or abnormal mass effect observed upon the small bowel with real-time fluoroscopy. There is a mod erate amount of persistent contrast material in the stomach at the two hour time point. IMPRESSION: 1. No evidence of bowel obstruction. 2. Possible delayed gastric emptying. Reviewed, dictated and finalized at location A. UCT ANALYST
== END 2022-06-04 09:38 | disposition home or self-care (01) ==
PROVIDERS: PCP Internal Medicine; Visit Provider Internal Medicine
DX: K56.609 Unspecified intestinal obstruction, unspecified as to partial versus complete obstruction (principal)
CPT/HCPCS: 74250

== ENCOUNTER 2022-06-05 12:26 | Outpatient (CLI) | payer BC, SELFPAY ==
[2022-06-05 12:36] LABS: Basophils Absolute Auto 0.03 K/mm3 (0.00-0.10); Basophils Percent Auto 0.4 % (0.0-1.0); Eosinophils Absolute Auto 0.27 K/mm3 (0.02-0.50); Eosinophils Percent Auto 3.5 % (1.0-6.0); Hematocrit 40.5 % (35.0-49.0); Hemoglobin 13.1 g/dL (12.0-15.0); Immature Granulocyte Absolute 0.03 K/mm3 (0.00-0.00); Immature Granulocyte Percent A 0.4 % (0.0-0.0); Lymphocytes Absolute Auto 2.94 K/mm3 (1.10-4.50); Lymphocytes Percent Auto 38.2 % (18.0-42.0); Mean Corpuscular HGB Conc 32.3 g/dL (32.0-36.0); Mean Corpuscular Hemoglobin 28.9 pg (27.0-31.0); Mean Corpuscular Volume 89.4 fL (78.0-102.0); Monocytes Absolute Auto 0.33 K/mm3 (0.10-0.90); Monocytes Percent Auto 4.3 % (2.0-11.0); Neutrophils Absolute Auto 4.1 K/mm3 (1.7-7.2); Neutrophils Percent Auto 53.2 % (50.0-70.0); Platelet Count Result 388 K/mm3 (150-420); Red Blood Count 4.53 M/mm3 (4.20-5.40); Red Cell Distribution Width 13.8 % (11.6-14.4); White Blood Count 7.7 K/mm3 (4.8-10.8)
[2022-06-05 13:10] LABS: Alanine Aminotransferase 46 U/L (14-59); Albumin Level 3.6 g/dL (3.4-5.0); Alkaline Phosphatase 87 U/L (46-116); Anion Gap 9 mmol/L (8-16); Aspartate Amino Transferase 17 U/L (15-37); Bilirubin,Total 0.3 mg/dL (0.00-1.00); Blood Urea Nitrogen 7 mg/dL (7-18); CRP 1.5 mg/dL (0.0-0.9); Calcium 8.8 mg/dL (8.5-10.1); Carbon Dioxide 27 mmol/L (21-32); Chloride 104 mmol/L (98-108); Estimated Glomerular Filt Rate > 60; Glucose 108 mg/dL (70-99); Osmolality Calculated 289 mOsm/kg (285-295); Sodium 140 mmol/L (136-145); Total Protein 7.1 g/dL (6.4-8.2)
== END 2022-06-05 12:27 | disposition home or self-care (01) ==
LOC: CHSLAB 12:28
PROVIDERS: PCP Internal Medicine; Visit Provider Internal Medicine
DX: R10.9 Unspecified abdominal pain (principal)
CPT/HCPCS: 36415; 80053; 85025; 86140

== ENCOUNTER 2022-06-23 15:04 | Outpatient (CLI) | payer BC, SELFPAY ==
[2022-06-23 15:17] LABS: Hematocrit 41.8 % (35.0-49.0); Hemoglobin 13.7 g/dL (12.0-15.0); Mean Corpuscular HGB Conc 32.8 g/dL (32.0-36.0); Mean Corpuscular Hemoglobin 29.3 pg (27.0-31.0); Mean Corpuscular Volume 89.5 fL (78.0-102.0); Mean Platelet Volume 8.9 fl (9.2-11.8); Platelet Count Result 352 K/mm3 (150-420); Red Blood Count 4.67 M/mm3 (4.20-5.40); Red Cell Distribution Width 13.9 % (11.6-14.4); White Blood Count 9.5 K/mm3 (4.8-10.8)
[2022-06-23 16:09] LABS: Alanine Aminotransferase 18 U/L (14-59); Albumin Level 3.5 g/dL (3.4-5.0); Alkaline Phosphatase 85 U/L (46-116); Anion Gap 8 mmol/L (8-16); Aspartate Amino Transferase 13 U/L (15-37); Bilirubin,Total 0.3 mg/dL (0.00-1.00); Blood Urea Nitrogen 12 mg/dL (7-18); CRP 6.5 mg/dL (0.0-0.9); Calcium 8.8 mg/dL (8.5-10.1); Carbon Dioxide 28 mmol/L (21-32); Chloride 105 mmol/L (98-108); Estimated Glomerular Filt Rate > 60; Glucose 79 mg/dL (70-99); Osmolality Calculated 290 mOsm/kg (285-295); Potassium 3.9 mmol/L (3.5-5.1); Sodium 141 mmol/L (136-145); Total Protein 7.1 g/dL (6.4-8.2)
[2022-06-23 17:13] LABS: Erythrocyte Sedimentation Rate 38 mm/hr (0-15)
[2022-06-23 18:27] LABS: Band Neutrophils Percent 0 % (0-6); Basophils Percent Manual 0 % (0-1); Eosinophils Absolute Manual 0.09 K/mm3 (0.02-0.5); Eosinophils Percent Manual 1 % (1-6); Lymphocytes Percent Manual 40 % (18-44); Monocytes Absolute Manual 0.47 K/mm3 (0.1-0.90); Monocytes Percent Manual 5 % (3-9); Neutrophils Absolute Manual 5.13 K/mm3 (1.7-7.2); Neutrophils Percent Manual 54 % (46-73); Platelet Estimate Adequate (Adequate); Total Cells Counted 100
== END 2022-06-23 15:05 | disposition home or self-care (01) ==
LOC: CHSLAB 15:06
PROVIDERS: PCP Internal Medicine; Visit Provider Internal Medicine
DX: R10.9 Unspecified abdominal pain (principal)
CPT/HCPCS: 36415; 80053; 85025; 85652; 86140

== ENCOUNTER 2022-07-25 00:45 | Day surgery (SDC) | payer BC, SELFPAY ==
[2022-07-10 11:28] VITALS: BMI 37.1
[2022-07-25 11:29] VITALS: BP 147/96; PULSE 91; RESP 18; TEMP 36; O2SAT 100
--- NOTE | 2022-07-25 11:31 | WPDANESEPPF ---
Anes - Initial Pre Proc Eval Procedure: Operation Date: 07/25/22 13:00 Proposed Procedures p Esophagogastroduodenoscopy & Colonoscopy - Phong Mejia MD Date/Time: 07/25/22 11:31 Surgeon: Phong Mejia MD Pre Op Diagnosis: diarrhea,ab.pain,abnor.lab,abnor finding radiology Patient Data Age: 32 Gender: F Height: 1.68 m Weight: 106.1 kg Allergies Allergy/AdvReac Type Severity Reaction Status Date / Time No Known Allergies Allergy Verified 07/25/22 11:28 Home Medications Medication Instructions Recorded Confirmed Type norethindrone acetate 1 mg-ethinyl 1 tablet PO DAILY 06/06/22 07/10/22 History estradiol 20 mcg tablet (Microgestin) Patient hx anesthesia problems: none Family hx anesthesia problems: none Results Review: All pre-operative results and documents have been reviewed as part of the pre-operative evaluation. [facility] Past Medical History Medical History Obesity (BMI 35.0-39.9 without comorbidity) Family History Family History Grandparent Diabetes mellitus Mother Diverticulitis Father Hypertension Sibling Asthma Social History Social History Smoking status: Never smoker Second hand tobacco smoke exposure: No Alcohol intake: never Substance use: never Substance use type: does not use Living arrangements: with family Spiritual care concerns: No Anes - Eval Final PreProcedure Day of Procedure 07/25/22 11:31 Patient weight: obese Heart: regular rate and rhythm Lungs: clear to auscultation Airway: Mallampati scale class II Neurological: alert and oriented Last oral intake: >/= 8 hours ASA classification: II Emergent: no Anesthetic plan: proceed Anesthesia type and monitoring: general GIVS and standard monitoring Results Review: All pre-operative results and documents have been reviewed as part of the pre-operative evaluation. Informed Consent: The patient's anesthetic plan and its attendant risks and benefits were discussed with the patient/family/POA. Questions were solicited and answers provided to the satisfaction of the patient/family/POA.
[2022-07-25] MEDS: LACTATED RINGERS 1,000 ML 150 ML IV CONT (11:36)
--- NOTE | 2022-07-25 12:18 | WPDHPUPDATE1 ---
History and Physical Update Update Date/Time: 07/25/22 12:18 History and Physical has been reviewed, including an updated exam of the patient. There are NO changes in the patient's condition. Risks, benefits, and alternatives have been discussed and questions answered. Patient agrees to proceed with procedure.
--- NOTE | 2022-07-25 12:43 | SUR.OPER ---
EGD ENDED AT 1232, COLONOSCOPY BEGAN AT 1237.
[2022-07-25 12:50] VITALS: BP 117/72; PULSE 94; RESP 27; O2SAT 99
[2022-07-25 13:00] VITALS: BP 126/78; PULSE 92; RESP 19; O2SAT 98
[2022-07-25 13:10] VITALS: BP 122/77; PULSE 83; RESP 18; O2SAT 100
== END 2022-07-25 13:35 | disposition home or self-care (01) ==
PROVIDERS: PCP Internal Medicine; Visit Provider Internal Medicine Gastroenterology
PROC: 0DJ08ZZ Inspection of Upper Intestinal Tract, Via Natural or Artificial Opening Endoscopic (ICD-10-PCS; CPT 43235; principal; 2022-07-25 13:00)
DX: R19.7 Diarrhea, unspecified (principal); K29.50 Unspecified chronic gastritis without bleeding; K80.20 Calculus of gallbladder without cholecystitis without obstruction; R16.0 Hepatomegaly, not elsewhere classified; E66.9 Obesity, unspecified; Z68.37 Body mass index [BMI] 37.0-37.9, adult
CPT/HCPCS: 45380; 43239; 87081; 88305; 88342; J2704; J7120

== ENCOUNTER 2022-12-29 01:59 | Emergency (ER) | payer BC, SELFPAY ==
[2022-12-29 02:02] VITALS: BP 161/97; PULSE 96; RESP 18; TEMP 36.7; O2SAT 96
--- NOTE | 2022-12-29 02:26 | ED.GENADULT ---
HPI - General Adult General Chief complaint: Unspecified Stated complaint: Swollen Finger Source: patient Mode of arrival: ambulatory Limitations: no limitations History of Present Illness HPI narrative: 40-year-old white female her hand started swelling around 6:00 p.m. and her wedding ring got stuck she was unable to get this off by trying multiple methods using a string fishing wire. Comes to emergency room to have it removed. Denies any loss of function or finger numbness or tingling. Denies any other complaints. She is eating drinking stooling and voiding fine walking talking seen in hearing fine no rash or itching bleeding or bruising or any other complaints. Related Data Home Medications Medication Instructions Recorded Confirmed norethindrone acetate 1 mg-ethinyl 1 tablet PO DAILY 06/06/22 12/29/22 estradiol 20 mcg tablet (Microgestin) Allergies Allergy/AdvReac Type Severity Reaction Status Date / Time No Known Allergies Allergy Verified 12/29/22 02:02 Review of Systems Review of Systems: All systems reviewed & are unremarkable except as noted in HPI and below PMFSH Past Medical History Medical History Obesity (BMI 35.0-39.9 without comorbidity) Family History Family History Grandparent Diabetes mellitus Mother Diverticulitis Father Hypertension Sibling Asthma Social History Social History Smoking status: Never smoker Second hand tobacco smoke exposure: No Alcohol intake: never Substance use: never Substance use type: does not use Living arrangements: with family Spiritual care concerns: No Exam Narrative: White female no apparent distress left index finger swollen or ring is tight on her finger she has full range of motion of her hands and fingers. Capillary refills normal. Course Vital Signs Vital signs: Vital Signs Temperature 36.7 C 12/29/22 02:02 Pulse Rate 96 12/29/22 02:02 Respiratory Rate 18 12/29/22 02:02 Blood Pressure 161/97 H 12/29/22 02:02 Pulse Oximetry 96 12/29/22 02:02 Oxygen Delivery Room Air 12/29/22 02:02 Temperature 36.7 C 12/29/22 02:02 Pulse Rate 81 12/29/22 02:35 Respiratory Rate 16 12/29/22 02:35 Blood Pressure 143/83 H 12/29/22 02:35 Pulse Oximetry 96 12/29/22 02:35 Oxygen Delivery Room Air 12/29/22 02:35 Medical Decision Making MDM Narrative Medical decision making narrative: Patient is placed in room 6 history and physical were performed. And electric ring cutter was used to cut the ring and then was removed with forceps. Patient tolerated procedure well. Independent Historian: ? patient Differential Dx includes but not limited to finger sprain fracture it has increased salt intake Medications were Reviewed:? ? medications reviewed Independently Interpreted by me:? External Source Review:?? Social Situation Impacting Patients Care:?? none Shared decision Making:? evaluation with patient discussed all questions were asked and answered and patient agreed on plan. Discussed with Clinical impression: Hand swelling left ring finger swelling Patient disposition: discharge home Condition at discharge: stable Vital Signs Vital Signs: Vital Signs Temperature 36.7 C 12/29/22 02:02 Pulse Rate 96 12/29/22 02:02 Respiratory Rate 18 12/29/22 02:02 Blood Pressure 161/97 H 12/29/22 02:02 Pulse Oximetry 96 12/29/22 02:02 Oxygen Delivery Room Air 12/29/22 02:02 Temperature 36.7 C 12/29/22 02:02 Pulse Rate 81 12/29/22 02:35 Respiratory Rate 16 12/29/22 02:35 Blood Pressure 143/83 H 12/29/22 02:35 Pulse Oximetry 96 12/29/22 02:35 Oxygen Delivery Room Air 12/29/22 02:35 Discharge Plan Discharge Clinical Impression: Finger swelling Patient Disposition
[2022-12-29 02:35] VITALS: BP 143/83; PULSE 81; RESP 16; O2SAT 96
== END 2022-12-29 02:36 | disposition home or self-care (01) ==
PROVIDERS: Emergency Provider Emergency Medicine; PCP Internal Medicine
DX: M79.89 Other specified soft tissue disorders (principal)
CPT/HCPCS: 99281